=== PATIENT | male | born 1960 | race Caucasian/White ===

== ENCOUNTER 2017-03-26 17:06 | Emergency (ER) | payer MEDICARE, MEDICAID ==
--- NOTE | 2017-04-03 01:14 | ER ---
ADMIT: 03/26/2017 RM/LOC: ER [facility] MR#: [id number] [facility] [address] [place], [place] [id number] NATHEN MCMILLAN [address] [place] [address] Emergency Room Report SEX: M AGE: 57 : 1960 DATE: 03/26/2017 CHIEF COMPLAINT: Blood at catheter site. HISTORY OF PRESENT ILLNESS: The patient is a 57-year-old male, who was diagnosed with urinary retention, UTI, and possible prostatitis little over a week ago. He was seen in [place], for this is where he lives and had a Sauer catheter placed and placed on antibiotics. He is here visiting family and notes that he had a little bit of blood at the tip of his penis and was concerned and wanted it checked out. He states his Sauer bag has been filling without difficulty. His urine has not changed in color, it is not cloudy. He does not have any fevers or chills, and denies any abdominal pain, nausea, or vomiting. He does have appointment scheduled this week with his urologist back in [place], he is leaving in a couple of days. PAST MEDICAL HISTORY: Insulin-dependent diabetes, recent infection with either prostatitis or urinary tract infection and urinary retention. MEDICATIONS: See nurse's note. He is on Flomax and states he is on an antibiotic for the infection. ALLERGIES: SEE NURSE'S NOTE. SOCIAL HISTORY: Denies smoking, drug, or alcohol use. PHYSICAL EXAMINATION: VITAL SIGNS: Blood pressure 155/70, pulse 74, respirations 14, temp 99.4, saturations 99% on room air. GENERAL: The patient is alert, in no distress. Breathing comfortably. ABDOMEN: Soft, nontender. GENITOURINARY: Examination of his groin reveals he does have a very small amount of dried blood at the urethral meatus and on the catheter, but has no active bleeding. No inflammation. No signs of infection. No testicular swelling or pain and no penile swelling or pain. The urine in the catheter appears clear, non-cloudy. MEDICAL DECISION MAKING: Based on patient's complaints and my exam and states ADMIT: 03/26/2017 RM/LOC: ER [facility] MR#: [id number] [facility] [address] [place], [place] [id number] NATHEN MCMILLAN [address] [place] [id number] Emergency Room Report SEX: M AGE: 57 : 1960 that he thinks he might have tugged on it slightly. He likely had some localized trauma, which is the source of the bleeding. He is currently on an antibiotic and not having any cloudy, hazy urine, and not having any fevers. He will be discharged home on his current medications with instructions to be very careful with his Sauer catheter and he is to follow up with his urologist as scheduled this week in [place]. If he has any further problems while he is here in [place], he can return to the ER or followup with Dr. Chavez, who is on for Urology. DIAGNOSES: 1. Trauma to urethral meatus. 2. Urinary retention. Reinaldo Greenfield MD/ jenae JOB #: [id number] CC: Alejo Cruz MD, Attending Physician Jaya Huddleston MD, Family Physician
== END 2017-03-26 19:00 | disposition home or self-care (01) ==
LOC: ER 17:06
DX: T83.83XA Hemorrhage due to genitourinary prosthetic devices, implants and grafts, initial encounter (principal); R33.9 Retention of urine, unspecified; E11.9 Type 2 diabetes mellitus without complications; I10 Essential (primary) hypertension; I25.10 Atherosclerotic heart disease of native coronary artery without angina pectoris; F17.210 Nicotine dependence, cigarettes, uncomplicated; Z79.82 Long term (current) use of aspirin; Z79.4 Long term (current) use of insulin; Z79.899 Other long term (current) drug therapy